=== PATIENT | female | born 1995 | race African-American/Black ===

== ENCOUNTER 2017-01-16 11:00 | Emergency (ER) | payer SELFPAY ==
[2017-01-16 11:36] VITALS: BP 116/82; PULSE 78; TEMP 98.3; BMI 31.8
[2017-01-16 12:00] LABS: BASOPHIL 0.6 % (0-2.0); PLATELET COUNT 233 K/MM3 (134-434); WHITE BLOOD COUNT 10.7 K/mm3 (4.0-10.0)
[2017-01-16 12:03] LABS: NEUTROPHILS 79.8 % (42.8-82.8)
[2017-01-16 12:04] LABS: MEAN CELL VOLUME 84.9 fl (80-96)
--- NOTE | 2017-01-16 12:07 | PDOC ---
History of Present Illness - General Chief Complaint: Rectal Bleed Stated Complaint: RECTAL BLEEDING Time Seen by Provider: 01/16/17 11:03 History Source: Patient Exam Limitations: No Limitations - History of Present Illness Initial Comments: 01/16/17 11:52 This is an otherwise healthy 21-year-old female with a history of irritable bowel disease (with diarrhea) who presents emergency department with a complaint of rectal bleeding since yesterday. Patient states she had an episode of diarrhea, white and noted blood in the toilet bowl. She has had 3 episodes of diarrhea followed by blood noted in the toilet bowl. She denies straining, constipation. She denies recent travel. Pt denies recent antibiotic use Pt has had abdominal cramping but is on her menses PMH: irritable bowel disease PSH: denies (has previously had a colonoscopy) Meds: denies ALL: NKDA Social: denies drug use GENERAL/CONSTITUTIONAL: No: fever, chills, weakness, loss of appetite. HEAD, EYES, EARS, NOSE AND THROAT: No: change in vision, ear pain, discharge, sore throat, throat swelling. CARDIOVASCULAR: No: chest pain, lightheadedness, palpitations, syncope RESPIRATORY: No: cough, shortness of breath, wheezing, hemoptysis, stridor. GASTROINTESTINAL: Yes: Rectal bleeding No: nausea, vomiting, diarrhea, abdominal cramping, constipation. GENITOURINARY: No: dysuria, hematuria, frequency, urgency, flank pain. MUSCULOSKELETAL: No: back pain, neck pain, joint pain, muscle swelling or pain SKIN AND BREASTS: No: lesions, pallor, rash or easy bruising. NEUROLOGIC: No: headache, vertigo, paresthesias, weakness ENDOCRINE: No: unexplained weight gain or loss HEMATOLOGIC/LYMPHATIC: No: anemia, easy bleeding, swelling nodes. GENERAL: The patient is in no acute distress. HEAD: Normal with no signs of trauma. EYES: PERRLA, EOMI, sclera anicteric, conjunctiva clear. ENT: Ears normal, nares patent, oropharynx clear without exudates. Moist mucous membranes. NECK: Normal range of motion, supple without lymphadenopathy, JVD, or masses. LUNGS: Breath sounds equal, clear to auscultation bilaterally. No wheezes, and no crackles. HEART:Regular rate and rhythm, normal S1 and S2 without murmur, rub or gallop. ABDOMEN: Soft, nontender, normoactive bowel sounds. No guarding, no rebound. Rectal examination: pt unable to tolerate this, no external hemorrhoids, blood tinged fluid on examination noted (?menses???) EXTREMITIES: Normal range of motion, no edema. No clubbing or cyanosis. No erythema, or tenderness. NEUROLOGICAL: Cranial nerves II through XII grossly intact. Normal speech. No focal neurological deficits. MUSCULOSKELETAL: Back non-tender to palpation, no CVA tenderness SKIN: Warm, Dry, normal turgor, no rashes or lesions noted. Past History - Past Medical History Allergies/Adverse Reactions: Allergies Allergy/AdvReac Type Severity Reaction Status Date / Time No Known Allergies Allergy Verified 01/16/17 11:02 Home Medications: Ambulatory Orders Acetaminophen [Tylenol] 1,000 mg PO QID 01/16/17 Asthma: Yes GI Disorders: Yes (gastrtis,IBS) Other medical history: RECTAL BLEEDS, - Immunization History Immunization Up to Date: Yes - Psycho/Social/Smoking Cessation Hx Anxiety: No Suicidal Ideation: No Smoking Status: No Smoking History: Former smoker Have you smoked in the past 12 months: Yes Number of Cigarettes Smoked Daily: 1 Information on smoking cessation initiated: Yes 'Breaking Loose' booklet given: 01/16/17 Hx Alcohol Use: No Drug/Substance Use Hx: No Substance Use Type: None *Physical Exam - Vital Signs Last Vital Signs Temp Pulse Resp BP Pulse Ox 98.3 F 78 20 116/82 100 01/16/17 11:01 01/16/17 11:01 01/16/17 11:01 01/16/17 11:01 01/16/17 11:01 ED Treatment Course - LABORATORY CBC & Chemistry Diagram: 01/16/17 11:54 Medical Decision Making - Medical Decision Making 01/16/17 12:07 DD: internal hemorrhoid, AVM, bleeding diverticulosis, anal tear, UC Will do CBC Will do rectal examination Will ask pt to follow up with GI 01/16/17 12:09 Laboratory Tests 01/16/17 01/16/17 11:46 11:54 WBC 10.7 H Hgb 12.1 Hct 35.6 Plt Count 233 Stool Occult Blood Negative *DC/Admit/Observation/Transfer Diagnosis at time of Disposition: Rectal bleeding Irritable bowel syndrome (IBS) Qualifiers: Irritable bowel syndrome type: with diarrhea Qualified Code(s): K58.0 - Irritable bowel syndrome with diarrhea - Discharge Dispostion Disposition: HOME Condition at time of disposition: Stable Admit: No - Referrals Referrals: Anastasia Curry MD [Staff Physician] - Jessi Pierce MD [Staff Physician] - - Patient Instructions Printed Discharge Instructions: DI for Rectal Bleeding, DI for Hemorrhoids Additional Instructions: Shea Thank you for coming in to the ER today Your blood counts are normal You will need to follow up with a rubber and plastics worker within 1 week You will also need to see a primary care physician within 1 week Please monitor yourself for heavy bleeding - filling the toilet bowel with blood , lightheadedness, chest pain, palpitations - Post Discharge Activity Work/School Note: Back to Work
== END 2017-01-16 12:29 | disposition home or self-care (01) ==
LOC: FER 11:00
DX: K58.0 Irritable bowel syndrome with diarrhea (principal); K62.5 Hemorrhage of anus and rectum; Z87.891 Personal history of nicotine dependence; J45.909 Unspecified asthma, uncomplicated; K58.9 Irritable bowel syndrome, unspecified
CPT/HCPCS: 36415; 82272; 85025; 99282-25

== ENCOUNTER 2017-05-20 20:39 | Emergency (ER) | payer OTHER ==
[2017-05-20 20:49] VITALS: BP 97/60; PULSE 78; TEMP 98.2; BMI 30.1
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
[2017-05-20] MEDS ORDERED: ACETAMINOPHEN 325 MG TABLET (FP) PO ONE (23:46)
[2017-05-20] MEDS ORDERED: ACETAMINOPHEN 325 MG TABLET (FP) ONE (23:51)
== END 2017-05-20 23:57 | disposition home or self-care (01) ==
LOC: FER 20:39
DX: S00.03XA Contusion of scalp, initial encounter (principal); S09.90XA Unspecified injury of head, initial encounter; S86.911A Strain of unspecified muscle(s) and tendon(s) at lower leg level, right leg, initial encounter; W20.8XXA Other cause of strike by thrown, projected or falling object, initial encounter; Y93.89 Activity, other specified; Y92.219 Unspecified school as the place of occurrence of the external cause
CPT/HCPCS: 70450-TC; 84703; 99281-25

== ENCOUNTER 2017-11-25 01:49 | Emergency (ER) | payer OTHER ==
[2017-11-25 02:23] VITALS: BP 120/72; PULSE 77; TEMP 98.6; BMI 30.1
--- NOTE | 2017-11-25 04:18 | PDOC ---
History of Present Illness - General History Source: Patient Exam Limitations: No Limitations - History of Present Illness Initial Comments: 11/25/17 05:52 Patient is a 22 year old female with a significant past medical history of IBS, who presents to the ED with complaints of headache that began yesterday morning. Patient reports experiencing sudden onset of head pain that began yesterday morning and has not shown any signs of subsiding. She reports experiencing blurred vision this afternoon, prompting her to come into the ED for further evaluation. Patient reports experiencing 4 episodes of vomiting secondary to head pain. She reports taking Excedrin for pain with no relief. Denies chest pain, Sob, Denies fevers, chills. Denies contact with sick individuals, out of state traveling. Denies head trauma. Denies any other symptoms. Allergies: None Social history: No smoking. No alcohol. No illicit drugs. Surgical history: None PMD: None <Thierno Roth - Last Filed: 11/25/17 05:52> <Nicki Herrera - Last Filed: 11/25/17 06:04> - General Chief Complaint: Headache Stated Complaint: ABD PAIN Time Seen by Provider: 11/25/17 03:44 Past History <Thierno Roth - Last Filed: 11/25/17 05:52> - Past Medical History Asthma: Yes GI Disorders: Yes (gastrtis,IBS) - Immunization History Immunization Up to Date: Yes - Suicide/Smoking/Psychosocial Hx Smoking Status: No Smoking History: Never smoked Have you smoked in the past 12 months: No Number of Cigarettes Smoked Daily: 1 Information on smoking cessation initiated: No 'Breaking Loose' booklet given: 01/16/17 Hx Alcohol Use: No Drug/Substance Use Hx: No Substance Use Type: None <Nicki Herrera - Last Filed: 11/25/17 06:04> - Past Medical History Allergies/Adverse Reactions: Allergies Allergy/AdvReac Type Severity Reaction Status Date / Time No Known Allergies Allergy Verified 11/25/17 02:16 Home Medications: Ambulatory Orders NK [No Known Home Medication] 05/20/17 Review of Systems - Review of Systems Able to Perform ROS?: Yes Comments:: 11/25/17 05:52 GENERAL/CONSTITUTIONAL: No fever or chills. No weakness. HEAD, EYES, EARS, NOSE AND THROAT: No change in vision. No ear pain or discharge. No sore throat. CARDIOVASCULAR: No chest pain or shortness of breath. RESPIRATORY: No cough, wheezing, or hemoptysis. GASTROINTESTINAL: +Nausea. +Vomiting. No diarrhea or constipation. GENITOURINARY: No dysuria, frequency, or change in urination. MUSCULOSKELETAL: No joint or muscle swelling or pain. No neck or back pain. SKIN: No rash NEUROLOGIC: +Headache. No vertigo, loss of consciousness, or change in strength/sensation. ENDOCRINE: No increased thirst. No abnormal weight change. HEMATOLOGIC/LYMPHATIC: No anemia, easy bleeding, or history of blood clots. ALLERGIC/IMMUNOLOGIC: No hives or skin allergy. All Other Systems: Reviewed and Negative <Thierno Roth - Last Filed: 11/25/17 05:52> *Physical Exam - Vital Signs Last Vital Signs Temp Pulse Resp BP Pulse Ox 98.6 F 77 18 120/72 99 11/25/17 01:55 11/25/17 01:55 11/25/17 01:55 11/25/17 01:55 11/25/17 01:55 - Physical Exam Comments: 11/25/17 05:53 GENERAL: Awake, alert, and fully oriented, in no acute distress HEAD: No signs of trauma EYES: PERRLA, EOMI, sclera anicteric, conjunctiva clear ENT: Auricles normal inspection, hearing grossly normal, nares patent, oropharynx clear without exudates. Moist mucosa NECK: Normal ROM, supple, no lymphadenopathy, JVD, or masses LUNGS: Breath sounds equal, clear to auscultation bilaterally. No wheezes, and no crackles HEART: Regular rate and rhythm, normal S1 and S2, no murmurs, rubs or gallops ABDOMEN: Soft, nontender, normoactive bowel sounds. No guarding, no rebound. No masses EXTREMITIES: Normal range of motion, no edema. No clubbing or cyanosis. No cords, erythema, or tenderness NEUROLOGICAL: Cranial nerves II through XII grossly intact. Normal speech, normal gait SKIN: Warm, Dry, normal turgor, no rashes or lesions noted. <Thierno Roth - Last Filed: 11/25/17 05:52> - Vital Signs Last Vital Signs Temp Pulse Resp BP Pulse Ox 98.6 F 77 18 120/72 99 11/25/17 01:55 11/25/17 01:55 11/25/17 01:55 11/25/17 01:55 11/25/17 01:55 <Nicki Herrera - Last Filed: 11/25/17 06:04> ED Treatment Course - LABORATORY CBC & Chemistry Diagram: 11/25/17 04:32 11/25/17 04:32 - ADDITIONAL ORDERS Additional order review: 11/25/17 04:32 RBC 4.41 MCV 85.2 MCHC 31.8 L RDW 15.3 MPV 9.6 Neutrophils % 84.6 H D Lymphocytes % 9.2 D Monocytes % 5.2 Eosinophils % 0.1 D Basophils % 0.9 - Medications Given in the ED: ED Medications Discontinued Medications Generic Name Dose Route Start Last Admin Trade Name Freq PRN Reason Stop Dose Admin Ondansetron HCl 4 mg 11/25/17 05:10 11/25/17 05:33 Zofran Injection IVPB 11/25/17 05:11 4 mg ONCE ONE Administration <Thierno Roth - Last Filed: 11/25/17 05:52> - LABORATORY CBC & Chemistry Diagram: 11/25/17 04:32 11/25/17 04:32 <Nicki Herrera - Last Filed: 11/25/17 06:04> Medical Decision Making - Medical Decision Making 11/25/17 05:39 Pt comes with headache and viral illness. WBC is 17. Pt works at [employer]. She has ill contacts. SHe has a viral gastroneteritis. <Nicki Herrera - Last Filed: 11/25/17 06:04> *DC/Admit/Observation/Transfer - Attestations Scribe Attestion: 11/25/17 05:53 Documentation prepared by Thierno Roth, acting as certified medical assistant for Nicki Herrera MD/. <Thierno Roth - Last Filed: 11/25/17 05:52> - Discharge Dispostion Admit: No <Nicki Herrera - Last Filed: 11/25/17 06:04> Diagnosis at time of Disposition: Viral syndrome - Discharge Dispostion Disposition: HOME Condition at time of disposition: Stable - Patient Instructions Printed Discharge Instructions: DI for Viral Syndrome
[2017-11-25] MEDS ORDERED: LACTATED RINGERS SOLUTION 1,000 ML/1,000 ML INFUS.BAG IV SCH (04:30)
[2017-11-25] MEDS ORDERED: ONDANSETRON 4 MG/2 ML VIAL IVPB ONE (05:10)
[2017-11-25 05:21] LABS: BASO % 0.9 % (0-2.0); EOS % 0.1 % (0-4.5); HEMATOCRIT 37.6 % (32.4-45.2); LYMPH % 9.2 % (8-40); MCH 27.1 pg (25.7-33.7); MCHC 31.8 g/dl (32.0-36.0); MEAN CELL VOLUME 85.2 fl (80-96); MEAN PLT VOLUME 9.6 fl (7.5-11.1); MONO % 5.2 % (3.8-10.2); NEUT % 84.6 % (42.8-82.8); PLATELET COUNT 245 K/MM3 (134-434); RBC 4.41 M/mm3 (3.60-5.2); RDW 15.3 % (11.6-15.6)
[2017-11-25 05:53] LABS: ALBUMIN 3.9 g/dl (3.4-5.0); ALK PHOS 76 U/L (45-117); ANION GAP 9 (8-16); BILIRUBIN,TOTAL 0.4 mg/dL (0.2-1.0); BLOOD UREA NITROGEN 14 mg/dL (7-18); CALCIUM 9.4 mg/dL (8.5-10.1); CHLORIDE 104 mmol/L (98-107); CO2 27 mmol/L (21-32); CREATININE 0.8 mg/dL (0.55-1.02); GLUCOSE,RANDOM 84 mg/dL (74-106); POTASSIUM 3.9 mmol/L (3.5-5.1); SGOT/AST 17 U/L (15-37); SGPT/ALT 21 U/L (12-78); SODIUM 140 mmol/L (136-145); TOT PROT 7.4 g/dl (6.4-8.2)
== END 2017-11-25 06:35 | disposition home or self-care (01) ==
LOC: JER 01:49
PROC: 3E0337Z Introduction of Electrolytic and Water Balance Substance into Peripheral Vein, Percutaneous Approach (ICD-10-PCS; principal; 2017-11-25)
PROC: 3E033GC Introduction of Other Therapeutic Substance into Peripheral Vein, Percutaneous Approach (ICD-10-PCS; 2017-11-25)
DX: A08.4 Viral intestinal infection, unspecified (principal); B97.89 Other viral agents as the cause of diseases classified elsewhere; J45.909 Unspecified asthma, uncomplicated; Z87.19 Personal history of other diseases of the digestive system
CPT/HCPCS: 36415; 80053; 84702; 85025; 99281-25

== ENCOUNTER 2018-10-06 17:27 | Emergency (ER) | payer OTHER ==
[2018-10-06 18:06] VITALS: BP 130/73; PULSE 78; TEMP 98.1; BMI 29.2
--- NOTE | 2018-10-06 18:08 | PDOC ---
Rapid Medical Evaluation Chief Complaint: Cold Symptoms Medical Evaluation: Allergies Allergy/AdvReac Type Severity Reaction Status Date / Time No Known Allergies Allergy Verified 11/25/17 02:16 10/06/18 18:04 I have performed a brief in-person evaluation of this patient. The patient presents with a chief complaint of:cough non and off x 1 month , concerned about some dark phlegm/ ? blood streaks. Pertinent physical exam findings: CTA , no cough presently I have ordered the following: UCG, CXR The patient will proceed to the ED for further evaluation. 10/06/18 18:05 10/06/18 18:05 Discharge Disposition - Discharge Dispostion Condition at time of disposition: Stable - Referrals Referrals: Raimundo Avila [Primary Care Provider] - - Patient Instructions - Post Discharge Activity
--- NOTE | 2018-10-06 18:35 | PDOC ---
History of Present Illness - General Chief Complaint: Cold Symptoms Stated Complaint: COUGH UP BLOOD Time Seen by Provider: 10/06/18 18:30 History Source: Patient - History of Present Illness Timing/Duration: reports: other Past History - Past Medical History Allergies/Adverse Reactions: Allergies Allergy/AdvReac Type Severity Reaction Status Date / Time No Known Allergies Allergy Verified 11/25/17 02:16 Home Medications: Ambulatory Orders NK [No Known Home Medication] 05/20/17 Asthma: Yes COPD: No GI Disorders: Yes (gastrtis,IBS) - Surgical History GI Surgery: No - Immunization History Immunization Up to Date: Yes - Suicide/Smoking/Psychosocial Hx Smoking Status: No Smoking History: Current every day smoker Have you smoked in the past 12 months: No Number of Cigarettes Smoked Daily: 1 Information on smoking cessation initiated: No 'Breaking Loose' booklet given: 01/16/17 Hx Alcohol Use: No Drug/Substance Use Hx: Yes (weed) Substance Use Type: None Review of Systems - Review of Systems Constitutional: No: Fever, Night Sweats, Unintentional Wgt. Loss Respiratory: Yes: Cough. No: Shortness of Breath Cardiac (ROS): No: Chest Pain *Physical Exam - Vital Signs Last Vital Signs Temp Pulse Resp BP Pulse Ox 98.1 F 78 20 130/73 100 10/06/18 18:03 10/06/18 18:03 10/06/18 18:03 10/06/18 18:03 10/06/18 18:03 - Physical Exam General Appearance: Yes: Appropriately Dressed. No: Apparent Distress HEENT: positive: Normal Voice Neck: positive: Supple Respiratory/Chest: positive: Lungs Clear, Normal Breath Sounds Cardiovascular: positive: Regular Rate, S1, S2 Integumentary: positive: Dry, Warm Neurologic: positive: Fully Oriented, Alert, Normal Mood/Affect Moderate Sedation - Procedure Monitoring Vital Signs: Procedure Monitoring Vital Signs Temperature 98.1 F 10/06/18 18:03 Pulse Rate 78 10/06/18 18:03 Respiratory Rate 20 10/06/18 18:03 Blood Pressure 130/73 10/06/18 18:03 O2 Sat by Pulse Oximetry (%) 100 10/06/18 18:03 Medical Decision Making - Medical Decision Making 10/06/18 18:32 23 yo F, smokes marijuana frequently, here w/ cough that occurs only having smoking x 1 month per pt, sometimes notices "dark' sputum. No CP, sob, f/c. Denies tob use. States she is concerned she might have cancer after googling sxs see exam Cough Possibly irritative given hx, unlikely PNA given duration -upreg -cxr *DC/Admit/Observation/Transfer Diagnosis at time of Disposition: Cough - Discharge Dispostion Condition at time of disposition: Stable - Referrals Referrals: Raimundo Avila [Primary Care Provider] - - Patient Instructions Printed Discharge Instructions: Cough Additional Instructions: Your CXR was normal today Your cough might be due to irritation form marijuana smoke Consider refraining from smoking Follow up with your PMD as needed - Post Discharge Activity
== END 2018-10-06 19:07 | disposition home or self-care (01) ==
LOC: JERFT 17:27
DX: R05 Cough (principal); F17.210 Nicotine dependence, cigarettes, uncomplicated; J45.909 Unspecified asthma, uncomplicated; K58.9 Irritable bowel syndrome, unspecified
CPT/HCPCS: 71046-TC-FY; 84703; 99281-25

== ENCOUNTER 2019-11-16 08:48 | Emergency (ER) | payer OTHER ==
--- NOTE | 2019-11-16 08:56 | PDOC ---
History of Present Illness - General Chief Complaint: Cold Symptoms Stated Complaint: FEVER,SORE THROAT,COLD Time Seen by Provider: 11/16/19 08:54 History Source: Patient Exam Limitations: No Limitations - History of Present Illness Initial Comments: 11/16/19 08:55 24y F no pmhx presents with complaint of cough, body aches, malaise, subjective fevers, sore throat. Cough intermittently productive of whitish sputum. pt taking OTC meds such as nyquil as well as some left over amoxacillin from a prior infection. Pt denies any abd pain, n/v, back pain, dysuria, diarrhea, espitia , cough. pt concerned she may have the [place] moon virus so came for evaluation . LMP 10/27/19 PMD: Dr. Castelan ROS: Constitutional - +Fever, malaise, body aches no reported Chills, HEENT: +sore throat no reported vision changes, Respiratory: +cough, no reported sob, hemoptysis Cardiac: no reported chest pain, palpitations, light headedness, leg swelling Abd/GI: no reported abd pain, nausea, vomiting, diarrhea : no reported dysuria, frequency, discharge Musculskelatal - no reported back pain, joint swelling skin - no reported bruising, erythema, rash neurological: no reported headache, numbness, focal weakness, tingling, ataxia, hematologic: no reported easy bruising, easy bleeding exam: GENERAL: The patient is awake, alert, and fully oriented, Nontoxic - in no acute distress. HEAD: Normocephalic, atraumatic. EYES: extraocular movements intact, sclera anicteric, conjunctiva clear. ENT: Normal voice, Moist mucous membranes. mildly erythemadous posterior pharynx w/o exudates NECK: Normal range of motion, supple LUNGS: Breath sounds equal, clear to auscultation bilaterally. No wheezes, no rhonchi, no rales. HEART: Regular rate and rhythm, normal S1 and S2 without murmur, rub or gallop. ABDOMEN: Soft, nontender, No guarding, no rebound. No CVA tenderness EXTREMITIES: Normal range of motion, no edema. NEUROLOGICAL: No facial assymetry, Normal speech, PSYCH: Normal mood, normal affect. SKIN: Warm, Dry, normal turgor, likely viral URI vs flu (outside window of treatment for tamiflu) will dc with supprtive care no recent travel or risk factors to suggest coronavirus I discussed the physical exam findings, ancillary test results and final diagnoses with the patient. I answered all of the patient's questions. The patient was satisfied with the care received and felt comfortable with the discharge plan and treatment plan. The patient will call their primary care physician within 24 hours to arrange follow-up and will return to the Emergency Department with any new, persistent or worsening symptoms. Past History - Past Medical History Allergies/Adverse Reactions: Allergies Allergy/AdvReac Type Severity Reaction Status Date / Time No Known Allergies Allergy Verified 11/16/19 08:49 Home Medications: Ambulatory Orders NK [No Known Home Medication] 05/20/17 Asthma: Yes COPD: No GI Disorders: Yes (gastrtis,IBS) - Surgical History GI Surgery: No - Immunization History Immunization Up to Date: Yes - Psycho Social/Smoking Cessation Hx Smoking Status: No Smoking History: Current every day smoker Have you smoked in the past 12 months: No Number of Cigarettes Smoked Daily: 1 Cigars Per Day: 1 Information on smoking cessation initiated: Yes 'Breaking Loose' booklet given: 01/16/17 Hx Alcohol Use: Yes (occasionally) Drug/Substance Use Hx: Yes (weed) Substance Use Type: None *Physical Exam - Vital Signs Last Vital Signs Temp Pulse Resp BP Pulse Ox 99.8 F H 105 H 18 121/82 100 11/16/19 08:49 11/16/19 08:49 11/16/19 08:49 11/16/19 08:49 11/16/19 08:49 Discharge - Discharge Information Problems reviewed: Yes Clinical Impression/Diagnosis: URI (upper respiratory infection) Qualifiers: URI type: acute laryngopharyngitis Qualified Code(s): J06.0 - Acute laryngopharyngitis Condition: Stable Disposition: HOME - Admission No - Follow up/Referral Referrals: Aman Castelan [Non Staff, Medical] - - Patient Discharge Instructions Patient Printed Discharge Instructions: DI for Viral Upper Respiratory Infection -- Adult Additional Instructions: Return to the emergency department immediately with ANY new, persistent or worsening symptoms Including worsening fevers, difficulty breathing, coughing up blood or any other concerns. Take Motrin and Tylenol as needed for your body aches and fevers. Make sure he stay well-hydrated You MUST call and follow up with your doctor in 4-5 days for further evaluation of your symptoms. Results were discussed with you. Please make sure your doctor reviews the results of your emergency evaluation. Your Emergency Department visit is not complete without a follow up with your doctor. Print Language: VIETNAMESE - Post Discharge Activity Work/Back to School Note: Back to Work
[2019-11-16] MEDS ORDERED: ACETAMINOPHEN 325 MG TABLET (FP) PO ONE (09:00)
[2019-11-16 09:02] VITALS: BP 121/82; PULSE 105; TEMP 99.8; BMI 28.3
[2019-11-16] MEDS ORDERED: ACETAMINOPHEN 325 MG TABLET (FP) ONE (09:03)
== END 2019-11-16 09:20 | disposition home or self-care (01) ==
LOC: FER 08:48
DX: J06.0 Acute laryngopharyngitis (principal)
CPT/HCPCS: 99281-25